=== PATIENT | male | born 1970 | race Caucasian/White ===

== ENCOUNTER → 2016-12-19 | Outpatient (CLI) | payer OTHER ==
[~2016-12-19] MED LIST: FLEXERIL10 MG; HYDROCODON-ACE1 EAC7 PO; NO MEDICATIONS; NORCO 5/325 TAB1 TAB PO; NORCO 7.5-3251 EACH PO; VOLTAREN75 MG
--- NOTE | ~2016-12-19 | US6 ---
[facility] A Service of [facility] RADIOLOGY TEXT RESULTS PATIENT: RUFINO HARRIS LOCATION: [facility] : 74 UNIT #: [id number] AGE: [address]: Tomas Gusman MD SEX: M ORDER DR: [id number] [facility] [address] [place], [place] [address] [id number] O MR#: [id number] Acc #: [id number] NAME: RUFINO HARRIS. : 1970 SEX: M STUDY DATE/TIME: 12/19/2016 10:33 UNIT: [facility] ROOM: STUDY DESCRIPTION: US Abdominal Limited Attending Physician: Tomas Gusman M.D. Referring Physician: Tomas Gusman M.D. Ordering Physician: Tomas Gusman M.D. Primary Care Physician: Tomas Gusman M.D. MEDICAL IMAGING REPORT This report is preliminary unless electronic signature is present EXAM Right upper quadrant ultrasound, 12/19/2016. HISTORY Abnormally elevated liver enzymes. FINDINGS The liver demonstrates an increase in echotexture with attenuation of the ultrasound beam characteristic of fatty infiltration. No cystic or solid mass lesions were seen in the liver. The intra and extrahepatic bile ducts are not dilated. The gallbladder is normal with no evidence of cholelithiasis, wall thickening or pericholecystic fluid. The common duct measures 4 mm. The pancreas and right kidney are normal. IMPRESSION Fatty infiltration of the liver. Otherwise negative right upper quadrant ultrasound. Dictated by... Joss King M.D. THIS IS AN ELECTRONICALLY VERIFIED REPORT Joss King M.D. at 12/19/2016 4:42 PM MANDY/sindy TD: 12/19/2016 12:36 JOB #: [id number] MEDICAL IMAGING REPORT Page 1 of 1 COPY
== END | disposition home or self-care (01) ==
LOC: CGUS 10:08
DX: R94.5 Abnormal results of liver function studies (principal); K76.0 Fatty (change of) liver, not elsewhere classified; F10.10 Alcohol abuse, uncomplicated
CPT/HCPCS: 76705

== ENCOUNTER 2017-01-14 18:35 | Emergency (ER) | payer OTHER ==
--- NOTE | ~2017-01-14 | US85 ---
[facility] A Service of [facility] RADIOLOGY TEXT RESULTS PATIENT: RUFINO HARRIS LOCATION: SED : 74 UNIT #: [id number] AGE: [address]: Carla Clark POWER SUPPLY ENGINEER REPRODUCTIVE ENDOCRINOLOGIST SEX: M ORDER DR: [id number] [address] [address] [id number] E MR#: [id number] Acc #: [id number] NAME: RUFINO HARRIS : 1970 SEX: M STUDY DATE/TIME: 01/14/2017 19:58 UNIT: SED ROOM: STUDY DESCRIPTION: [facility] [employer] [facility] Attending Physician: Carla Clark A.P.R.N. Ordering Physician: Carla Clark A.P.R.N. Primary Care Physician: Tomas Gusman M.D. MEDICAL IMAGING REPORT This report is preliminary unless electronic signature is present. EXAM Left lower extremity venous duplex 01/14/2017 HISTORY Left foot pain and swelling for 1 day. No known injury. Evaluate for deep vein thrombosis. TECHNIQUE Venous ultrasound examination of the left lower extremity was performed using grayscale, spectral Doppler and color flow Doppler imaging. FINDINGS The examination is negative. There is no evidence of left lower extremity deep venous thrombus from the groin to the lower calf. Visualized greater saphenous vein is also patent. IMPRESSION Negative examination. No evidence of left lower extremity deep venous thrombosis. Dictated by... Joss King M.D. THIS IS AN ELECTRONICALLY VERIFIED REPORT Joss King M.D. at 01/15/2017 2:20 PM KRT/pcl TD: 01/14/2017 21:01 JOB #: [id number] [facility] A Service of [facility] RADIOLOGY TEXT RESULTS PATIENT: RUFINO HARRIS LOCATION: SED : 74 UNIT #: [id number] AGE: [address]: Carla Clark APRN REPRODUCTIVE ENDOCRINOLOGIST SEX: M ORDER DR: MEDICAL IMAGING REPORT Page 1 of 1
--- NOTE | ~2017-01-14 | CR126 ---
[facility] A Service of [facility] RADIOLOGY TEXT RESULTS PATIENT: RUFINO HARRIS LOCATION: SED : 74 UNIT #: [id number] AGE: [address]: Carla Clark FASHION INTERN DIRECTOR OF REIMBURSEMENT SEX: M ORDER DR: [id number] [address] [address] [id number] E MR#: [id number] Acc #: [id number] NAME: RUFINO HARRIS. : 1970 SEX: M STUDY DATE/TIME: 01/14/2017 18:06 UNIT: SED ROOM: STUDY DESCRIPTION: CR Foot Complete Min 3 View Lt Attending Physician: Carla Clark A.P.R.N. Ordering Physician: Carla Clark A.P.R.N. Primary Care Physician: Tomas Gusman M.D. MEDICAL IMAGING REPORT This report is preliminary unless electronic signature is present. EXAM Left foot, 3 views. DATE OF EXAM 01/14/2017 HISTORY Left foot pain and swelling today. No known injury. FINDINGS 3 views of the left foot demonstrate no fracture. The bones are normally mineralized and the joint spaces are normally maintained. There is mild soft tissue swelling about the left foot. No foreign body is seen. IMPRESSION Soft tissue swelling about the left foot. No evidence of fracture or radiopaque foreign body. Dictated by... Joss King M.D. THIS IS AN ELECTRONICALLY VERIFIED REPORT Joss King M.D. at 01/15/2017 2:19 PM MANDY/laurel TD: 01/14/2017 20:01 JOB #: [id number] MEDICAL IMAGING REPORT Page 1 of 1
[~2017-01-14 18:35] MED LIST changes: -FLEXERIL10 MG; -HYDROCODON-ACE1 EAC7 PO; -NORCO 7.5-3251 EACH PO; -VOLTAREN75 MG
[2017-05-12] MEDS ORDERED: HYDROCODON-ACE1 EAC7 PO (14:04)
[2017-05-20] MEDS ORDERED: NORCO 7.5-3251 EACH PO (07:30)
== END 2017-01-14 21:07 | disposition home or self-care (01) ==
LOC: SED 18:35
DX: R60.0 Localized edema (principal)
CPT/HCPCS: 29540; 73630; 93971; 99284

== ENCOUNTER 2017-03-13 01:56 | Emergency (ER) | payer OTHER ==
--- NOTE | ~2017-03-13 | EKG ---
PATIENT: RUFINO HARRIS UNIT #: [id number] Ventricular Rate: 100 BPM Atrial Rate: 100 BPM P-R Interval: 124 ms QRS Duration: 90 ms Q-T Interval: 338 ms QTC Calculation(Bezet): 436 ms P Start: 33 degrees Calculated R Start: 31 degrees Calculated T Start: 50 degrees Diagnosis Line: Normal sinus rhythm Diagnosis Line: Normal ECG Diagnosis Line: When compared with ECG of 15-JUN-2012 13:18, Diagnosis Line: Premature atrial complexes are no longer Present Diagnosis Line: Nonspecific T wave abnormality has replaced Diagnosis Line: inverted T waves in Inferior leads Diagnosis Line: Confirmed by MARLEN CHILEL MD ([id number]) on Diagnosis Line: 03/16/2017 11:02:51 AM INTERPRETING MD: GETACHEW MARTIN
--- NOTE | ~2017-03-13 | CT16 ---
[facility] A Service of [facility] RADIOLOGY TEXT RESULTS PATIENT: RUFINO HARRIS LOCATION: SED : 74 UNIT #: [id number] AGE: [address]: Ke Fisher MD SEX: M ORDER DR: [id number] [address] [address] [id number] E MR#: [id number] Acc #: [id number] NAME: RUFINO HARRIS. : 1970 SEX: M STUDY DATE/TIME: 03/13/2017 3:24 UNIT: SED ROOM: STUDY DESCRIPTION: CT Angio Chest for PE Attending Physician: Ke Fisher M.D. Ordering Physician: Ke Fisher M.D. Primary Care Physician: Tomas Gusman M.D. MEDICAL IMAGING REPORT This report is preliminary unless electronic signature is present. EXAM CTA chest, PE protocol. INDICATIONS Left-sided chest pain and shoulder pain for the past 3 days. PROCEDURE Contrast-enhanced CTA of the chest, attention on opacification of the pulmonary arteries. Coronal, 3-D MIP, and sagittal reformatted images were constructed and submitted. This CT exam was performed with one or more of the following radiation dose reduction techniques: automatic exposure control, adjustment of mA and/or kV according to patient size, and iterative reconstruction. COMPARISON None FINDINGS No evidence for pulmonary embolus. No evidence for acute aortic injury. No adenopathy. Asymmetric enlargement of the left thyroid lobe. Probable hepatic steatosis. No acute findings in the included upper abdomen. Scattered linear atelectasis in the lungs. No dense consolidation. No aggressive-appearing bone lesion. IMPRESSION 1. No evidence for acute pulmonary embolus. 2. Scattered linear atelectasis or scarring. 3. Asymmetric enlargement of the left thyroid lobe would be best evaluated with a nonemergent thyroid ultrasound. Dictated by... [facility] A Service of [facility] RADIOLOGY TEXT RESULTS PATIENT: RUFINO HARRIS LOCATION: SED : 74 UNIT #: [id number] AGE: [address]: Ke Fisher MD SEX: M ORDER DR: Alberto Ying M.D. THIS IS AN ELECTRONICALLY VERIFIED REPORT Alberto Ying M.D. at 03/18/2017 2:55 PM JANETH/tarun TD: 03/13/2017 13:18 JOB #: [id number] MEDICAL IMAGING REPORT Page 1 of 1
[2017-03-13] MEDS ORDERED: FLEXERIL10 MG (02:03)
[2017-03-13] MEDS ORDERED: VOLTAREN75 MG (02:03)
[2017-03-13 02:47] LABS: BASOPHIL# 0.1 X10e3 (0-0.3); BASOPHIL% 1.2 % (0-2.5); EOSINOPHIL# 0.1 X10e3 (0-0.7); HEMATOCRIT 43.7 % (38.0-50.0); HEMOGLOBIN 15.2 gm/dL (13.0-16.0); LYMPHOCYTE# 2.9 X10e3 (1.0-3.5); LYMPHOCYTE% 32.5 % (17.0-45.0); MEAN CELL VOLUME 87.9 FL (83-96); MEAN CORPUSCULAR HEMOGLOBIN 30.6 PG (28-34); MEAN CORPUSCULAR HGB CONC 34.9 g/dL (30-36); MEAN PLATELET VOLUME 8.8 FL (6.5-11.5); MONOCYTE# 0.8 X10e3 (0-1.0); MONOCYTE% 8.8 % (3.0-12.0); NEUTROPHIL% 56.5 % (40-75); PLATELET COUNT 282 X10e3 (140-420); RED BLOOD COUNT 4.98 X10e (3.90-5.60); RED CELL DISTRIBUTION WIDTH 13.5 % (11.0-15.5); WHITE BLOOD COUNT 8.8 X10e3 (4.0-10.5)
[2017-03-13 02:49] LABS: DIFF IND NO
[2017-03-13 02:58] LABS: POC - CKMB <1.0 ng/mL (0.0-7.9); POC - TROPONIN <0.05 ng/mL (<=0.05)
[2017-03-13 03:05] LABS: CALCIUM SERUM 8.7 mg/dL (8.4-10.2); CREATININE SERUM 0.8 mg/dL (0.6-1.4); GLOM FILT RATE Estimated 108.7 mL/min (>60); POTASSIUM 3.7 mmol/L (3.5-5.1)
[2017-05-12] MEDS ORDERED: HYDROCODON-ACE1 EAC7 PO (14:04)
[2017-05-20] MEDS ORDERED: NORCO 7.5-3251 EACH PO (07:30)
== END 2017-03-13 05:19 | disposition home or self-care (01) ==
LOC: SED 01:56
PROVIDERS: Emergency Medicine
DX: M54.12 Radiculopathy, cervical region (principal); R03.0 Elevated blood-pressure reading, without diagnosis of hypertension
CPT/HCPCS: 36415; 71275; 80048; 82553; 84484; 85025; 85379; 93005; 96374; 96375; 99284; J1885; J2930; J3360; Q9967

== ENCOUNTER → 2017-03-26 | Outpatient (CLI) | payer OTHER ==
[~2017-03-26] MED LIST changes: +FLEXERIL10 MG; +HYDROCODON-ACE1 EAC7 PO; +NORCO 7.5-3251 EACH PO; +VOLTAREN75 MG
--- NOTE | ~2017-03-26 | US128 ---
[id number] [address] [address] [id number] O MR#: [id number] Acc #: [id number] NAME: RUFINO HARRIS : 1970 SEX: M STUDY DATE/TIME: 03/26/2017 13:33 UNIT: SGUS ROOM: STUDY DESCRIPTION: Thyroid Attending Physician: Sergio Wise M.D. Referring Physician: Tomas Gusman M.D. Ordering Physician: Sergio Wise M.D. Primary Care Physician: Sergio Wise M.D. MEDICAL IMAGING REPORT This report is preliminary unless electronic signature is present. EXAM Thyroid ultrasound, 03/26/2017. CLINICAL HISTORY Thyromegaly on physical exam. FINDINGS The right lobe of the gland is overall normal in size. There is a solid 10 x 11 x 14 mm upper pole nodule and a lower pole 7 x 7 x 7 mm solid-appearing nodule. The left lobe of the gland is essentially completely replaced by a large solid lesion which measures about 4.3 x 4.8 x 5.1 cm. IMPRESSION Two smaller right lobe nodules and large dominant left lobe nodule easily amenable to ultrasound-guided needle aspiration. Dictated by... Fernando Maldonado M.D. THIS IS AN ELECTRONICALLY VERIFIED REPORT Fernando Maldonado M.D. at 03/27/2017 4:09 PM COLLETTE/sindy TD: 03/27/2017 10:34 JOB #: [id number] MEDICAL IMAGING REPORT Page 1 of 1
--- NOTE | ~2017-03-26 | MR32 ---
[facility] A Service of [facility] RADIOLOGY TEXT RESULTS PATIENT: RUFINO HARRIS LOCATION: [facility] : 74 UNIT #: [id number] AGE: [address]: Sergio Wise MD SEX: M ORDER DR: [id number] [place] [id number] O MR#: [id number] Acc #: [id number] NAME: RUFINO HARRIS : 1970 SEX: M STUDY DATE/TIME: 03/26/2017 13:48 UNIT: [facility] ROOM: STUDY DESCRIPTION: MR Cervical Wo Contrast Attending Physician: Sergio Wise M.D. Referring Physician: Tomas Gusman M.D. Ordering Physician: eSrgio Wise M.D. Primary Care Physician: Sergio Wise M.D. MRI CENTER REPORT This report is preliminary unless electronic signature is present. EXAM Cervical spine MRI without. HISTORY Neck pain radiating into the left fingers for 3 weeks, no known injury or surgery. COMMENT MRI of the cervical spine performed without contrast using routine 1.5T wide-bore imaging technique. COMPARISON Plain film comparison is from 03/19/2017. FINDINGS There is mild reversal of cervical lordosis. Bone marrow signal intensity is normal. Mild multilevel cervical intervertebral disc desiccation is noted. Mild endplate spondylosis and loss of disc height at C6-7. Cervical cord is normal in size and signal intensity and there is no Chiari-I malformation. There is asymmetric enlargement of left lobe of the thyroid gland, and is noted on the plain films deviation of the trachea to the right side is asymmetric, enlargement is about 5.3 x 4.2 x 4.4 cm dimension. See today's ultrasound thyroid examination separately dictated. At C2-3, there is mild left-side foraminal narrowing, but no canal stenosis. At C3-4, there is asymmetric right paramedian to posterolateral posterior disc osteophyte complex with some uncovertebral osteophyte formation worse to the right. Mild right-sided cord flattening and canal stenosis is present. There is mild left and more moderate right-side foraminal narrowing. STS[facility] A Service of [facility] RADIOLOGY TEXT RESULTS PATIENT: RUFINO HARRIS LOCATION: [facility] : 74 UNIT #: [id number] AGE: [address]: Sergio Wise MD SEX: M ORDER DR: At C4-5, there is minor disc bulging worse anteriorly and mild left-sided foraminal narrowing. Only mild effacement of the anterior thecal sac. At C5-6, there is mild concentric desiccated disc osteophyte complex with some mild uncovertebral osteophyte formation bilaterally and combination of findings result in mild right anterior cord flattening but no canal stenosis. No significant foraminal impingement. At C6-7, there is concentric disc bulging and endplate spondylosis with a superimposed left posterolateral extrusion which impinges upon the left 6-7 entry zone and extends into the foramen. Please correlate for left C7 radicular symptoms. There is mild left-sided anterior cord flattening but the cord is otherwise surrounded by CSF. The extrusion remains contiguous with the disc. It is probably about 7 mm SI dimension 5 mm AP dimension and 9 mm ML dimension. There is gvojkypm-xk-kdvcza left side 6-7 foraminal narrowing. At C7-T1, there is no canal stenosis. There is no significant foraminal impingement. IMPRESSION 1. Please refer to the separate ultrasound thyroid dictation for description of the left-sided thyroid lesion. 2. There is a left posterolateral disc extrusion at C6-7 with impingement upon 6-7 foraminal entry zone, and foramen such that there is mass effect on expected location left C7 root. Please correlate with clinical symptoms and see above. 3. Mild canal stenosis and cord flattening, asymmetrically to the right side at C3-4. See multilevel foraminal impingement details in the comment section. Dictated by... Nay Kenny M.D. THIS IS AN ELECTRONICALLY VERIFIED REPORT Nay Kenny M.D. at 03/26/2017 10:56 PM ALEJANDRA/laurel TD: 03/26/2017 18:57 JOB #: [id number] MRI CENTER REPORT Page 1 of 1
== END | disposition home or self-care (01) ==
LOC: SGUS 13:35
DX: M54.2 Cervicalgia (principal); E01.0 Iodine-deficiency related diffuse (endemic) goiter; E04.2 Nontoxic multinodular goiter; M50.223 Other cervical disc displacement at C6-C7 level; M48.02 Spinal stenosis, cervical region; E07.89 Other specified disorders of thyroid
CPT/HCPCS: 72141; 76536

== ENCOUNTER → 2017-04-09 | Outpatient (CLI) | payer OTHER ==
--- NOTE | ~2017-04-09 | XA230 ---
[facility] A Service of [facility] RADIOLOGY TEXT RESULTS PATIENT: RUFINO HARRIS LOCATION: [facility] : 74 UNIT #: [id number] AGE: [address]: Sergio Wise MD SEX: M ORDER DR: [id number] [place] [id number] [facility]. [place], [place] [address] [id number] O MR#: [id number] Acc #: [id number] NAME: RUFINO HARRIS : 1970 SEX: M STUDY DATE/TIME: 04/09/2017 10:41 UNIT: [facility] [facility] ROOM: STUDY DESCRIPTION: XA FNA Attending Physician: Sergio Wise M.D. Referring Physician: Sergio Wise M.D. Ordering Physician: Sergio Wise M.D. Primary Care Physician: Sergio Wise M.D. MEDICAL IMAGING REPORT This report is preliminary unless electronic signature is present EXAM Fine-needle aspiration of a left thyroid nodule. INDICATIONS 46-year-old male with large left thyroid nodule. FNA was requested. PROCEDURE Risks, benefits, and alternatives of the procedure discussed with the patient informed consent was obtained. Procedure room time-out was performed confirming correct patient and procedure. All elements of maximum sterile-barrier technique utilized according to guidelines appropriate for the procedure. TECHNIQUE/FINDINGS Ultrasound evaluation of the left lobe of the thyroid gland was performed. The large left thyroid nodule was visualized. The overlying skin was prepped and draped in the usual sterile fashion. 1% lidocaine was utilized to anesthetize the skin and underlying subcutaneous tissues. Next under ultrasound guidance, fine-needle aspiration of the nodules performed using 3 25 gauge needles. The samples were sent to pathology. Patient tolerated procedure well without immediate complications. IMPRESSION Technically successful ultrasound-guided fine-needle aspiration of a left thyroid nodule Dictated by... Ozzy Burr M.D. THIS IS AN ELECTRONICALLY VERIFIED REPORT Ozzy Burr M.D. at 04/12/2017 9:06 AM ARS/renata [facility] A Service of [facility] RADIOLOGY TEXT RESULTS PATIENT: RUFINO HARRIS LOCATION: [facility] : 74 UNIT #: [id number] AGE: [address]: Sergio Wise MD SEX: M ORDER DR: TD: 04/09/2017 18:58 JOB #: [id number] MEDICAL IMAGING REPORT Page 1 of 1 COPY
== END | disposition home or self-care (01) ==
LOC: CIVR 10:26
DX: E04.1 Nontoxic single thyroid nodule (principal)
CPT/HCPCS: 76942; 88172; 88173; 88305

== ENCOUNTER 2017-05-22 15:46 | Emergency (ER) | payer OTHER ==
--- NOTE | ~2017-05-22 | CT114 ---
[facility] A Service of [facility] RADIOLOGY TEXT RESULTS PATIENT: RUFINO HARRIS LOCATION: SED : 74 UNIT #: [id number] AGE: [address]: Rafael Alonzo MD SEX: M ORDER DR: [id number] [place] [id number] E MR#: [id number] Acc #: [id number] NAME: RUFINO HARRIS : 1970 SEX: M STUDY DATE/TIME: 05/22/2017 18:16 UNIT: SED ROOM: STUDY DESCRIPTION: CT Soft Tissue Neck W Cont Attending Physician: Rafael Alonzo M.D. Ordering Physician: Rafael Alonzo M.D. Primary Care Physician: Sergio Wise M.D. MEDICAL IMAGING REPORT This report is preliminary unless electronic signature is present. EXAM CT neck soft tissue with contrast HISTORY Thyroidectomy 05/19/2017 with incisional swelling. History of thyroid nodules. TECHNIQUE CT of the neck soft tissue performed in the axial plane during the intravenous administration of 100 mL of Isovue-370. This is followed by sagittal and coronal reconstructed images. This CT exam was performed with one or more of the following radiation dose reduction techniques: automatic exposure control, adjustment of mA and/or kV according to patient size, and iterative reconstruction. COMPARISON STUDIES The patient had a cervical spine MRI 03/26/2017 and fine needle aspiration 04/09/2017. I do not have a previous neck soft tissue for comparison. FINDINGS The parotid glands, submandibular glands normal. Epiglottis is well defined. There is some fullness of lingual tonsillar tissue bilaterally which is nonspecific. The airway is patent. There has been recent surgery with skin trip seen anteriorly and multiple surgical clips seen at the left side thyroid bed. It appears that there was resection of left side thyroid nodule. The right lobe remains and much of the left lung remains. Please correlate with histology. These results are available to me. There is low-attenuation tissue at the left side thyroid bed. The clips are at the margins of this tissue and presumably this is the postoperative bed. This low-attenuation material measures about 5.2 cm SI dimension, 2.2 cm ML dimension and about 3.5 cm AP dimension. There is no STS. [facility] A Service of [facility] RADIOLOGY TEXT RESULTS PATIENT: RUFINO HARRIS LOCATION: SED : 74 UNIT #: [id number] AGE: [address]: Rafael Alonzo MD SEX: M ORDER DR: rim-enhancing fluid collection seen. This appearance is nonspecific in a patient who is 4 days postop. It could be an expected postoperative appearance. There is no drainable fluid collection appreciated on CT scanning. There is a small amount of air seen adjacent to the undersurface left side of the hyoid bone but this is expected given recent nature of surgery. Again, there is only mild mass effect on the left side of the trachea and is probably less than it was on the MRI preoperatively. There is again a heterogeneous appearance to the right lobe. Correlation with any histology results recommended since this is nonspecific on CT scanning. No lymphadenopathy suspected. No prevertebral fluid collection. There is a large lucency at the base of the mandibular incisor seen on the lateral view, which probably right paramedian location, is worrisome for significant dental disease. Please correlate with dental exam. This is unrelated to the thyroid gland. IMPRESSION 1. This patient has had recent surgery to the left lobe of the thyroid gland. It appears that there has been resection of a left-sided thyroid mass. The right lobe remains as does much of the left lobe. Please correlate with the operative note. There are surgical clips at the bed and there is an area of low attenuation material presumably representing the postoperative bed that measures about 5.2 x 2.2 x 3.5 cm dimension. This is very nonspecific and could simply be postoperative granulation tissue. There is no drainable fluid collection suspected at this time. Close clinical followup is recommended to exclude early phlegmonous change given patient complaints. There is overall less mass effect upon the airway than there was preoperatively. Please correlate with histology results also. Remaining thyroid gland is still heterogeneous and nonspecific. No suspicious lymphadenopathy. No retropharyngeal fluid collection seen. 2. Suspect dental disease with lucency associated with the right paramedian mandible incisor tooth roots. Dental evaluation recommended. Dictated by... Nay A. Crecelius, M.D. THIS IS AN ELECTRONICALLY VERIFIED REPORT Nay Kenny M.D. at 05/25/2017 4:55 PM SAC/pcl TD: 05/23/2017 15:00 JOB #: [id number] MEDICAL IMAGING REPORT Page 1 of 1
[2017-05-22 17:41] LABS: BASOPHIL# 0.1 X10e3 (0-0.3); BASOPHIL% 1.1 % (0-2.5); EOSINOPHIL# 0.1 X10e3 (0-0.7); EOSINOPHIL% 0.9 % (0.0-7.0); HEMATOCRIT 31.4 % (38.0-50.0); LYMPHOCYTE# 1.6 X10e3 (1.0-3.5); LYMPHOCYTE% 19.9 % (17.0-45.0); MEAN CELL VOLUME 88.5 FL (83-96); MEAN CORPUSCULAR HGB CONC 35.1 g/dL (30-36); MEAN PLATELET VOLUME 8.6 FL (6.5-11.5); MONOCYTE# 0.7 X10e3 (0-1.0); NEUTROPHIL# 5.7 X10e3 (1.5-7.1); NEUTROPHIL% 69.1 % (40-75); PLATELET COUNT 327 X10e3 (140-420); RED BLOOD COUNT 3.55 X10e (3.90-5.60); RED CELL DISTRIBUTION WIDTH 12.7 % (11.0-15.5); WHITE BLOOD COUNT 8.2 X10e3 (4.0-10.5)
[2017-05-22 17:45] LABS: DIFF IND NO
[2017-05-22 18:01] LABS: BUN/CREATININE RATIO 12.85; CALCIUM SERUM 8.8 mg/dL (8.4-10.2); CREATININE SERUM 0.7 mg/dL (0.6-1.4); GLOM FILT RATE Estimated 114.8 mL/min (>60); POTASSIUM 3.8 mmol/L (3.5-5.1)
== END 2017-05-22 19:17 | disposition home or self-care (01) ==
LOC: SED 15:46
PROVIDERS: Emergency Medicine
DX: E89.822 Postprocedural seroma of an endocrine system organ or structure following an endocrine system procedure (principal)
CPT/HCPCS: 36415; 70491; 80048; 85025; 99283; Q9967